=== PATIENT | male | born 1950 | race Caucasian/White ===

== ENCOUNTER 2021-06-30 16:40 | Observation (INO) ==
[2021-06-30] MEDS ORDERED: Ondansetron ODT 4 MG TAB.RAPDIS SL PRN (18:26)
[2021-06-30] MEDS ORDERED: Melatonin 3 MG TABLET PO PRN (18:26)
[2021-06-30] MEDS ORDERED: Naloxone 0.4 MG/ML INJ IVP PRN (18:26)
[2021-06-30] MEDS ORDERED: SODIUM ZIRCONIUM CYCLOSILICATE 5 GM POWD.PACK PO ONE (18:33)
[2021-06-30] MEDS: 0.9 % Sodium Chloride 1,000 ML IVC SCH (18:39)
[2021-06-30 19:45] LABS: Bilirubin,Urine Negative (Negative); Blood,Urine Negative (Negative); Clarity,Urine Clear (Clear); Color,Urine Colorless (Yellow); Glucose,Urine (UA) Normal (Normal); Ketones,Urine Negative (Negative); Leukocyte Esterase,Urine Negative (Negative); Nitrite,Urine Negative (Negative); Protein,Urine Trace mg/dL (Neg-Trace); Urobilinogen,Urine Normal (Normal)
[2021-06-30 19:46] LABS: Basophils # 0.1 K/mcL (0.0-0.2); Basophils % 1.5 %; Eosinophils # 0.2 K/mcL (0.0-0.6); Eosinophils % 2.8 %; Hematocrit 37.1 % (37.5-50.1); Hemoglobin 12.4 g/dL (12.9-16.9); Immature Granulocytes % 0.3 % (0-4); Lymphocytes # 1.2 K/mcL (0.6-4.6); Lymphocytes % 20.1 %; Mean Corpuscular HGB Conc 33.4 g/dL (31.6-35.5); Mean Corpuscular Hemoglobin 30.3 pg (28.0-33.3); Mean Corpuscular Volume 90.7 fL (83.0-100.0); Mean Platelet Volume 10.5 fL (9.4-12.4); Monocytes # 0.6 K/mcL (0.0-1.3); Monocytes % 9.2 %; Neutrophils # 4.1 K/mcL (1.6-8.9); Platelet Count 155 K/mcL (140-400); Red Blood Count 4.09 M/mcL (4.19-5.50); Red Cell Distribution Width 11.8 % (11.5-14.5); Segmented Neutrophils % 66.1 %; White Blood Count 6.2 K/mcL (4.3-11.1)
[2021-06-30 19:49] LABS: Protein/Creatinine Ratio,Urine 0.28 mg/mg (0.00-0.20); Sodium, Urine 53.2 mEq/L
[2021-06-30 19:58] LABS: Magnesium 1.5 mg/dL (1.6-2.6)
[2021-06-30 19:59] LABS: Calcium 8.7 mg/dL (8.6-10.3); Potassium 4.8 mEq/L (3.5-5.1); Uric Acid 6.7 mg/dL (2.3-7.6)
[2021-06-30] MEDS ORDERED: *HR* LORazepam 2 MG/ML VIAL IVP PRN ×3 (20:35→21:05)
[2021-06-30] MEDS: traZODone 50 MG TABLET PO SCH (21:18)
[2021-06-30] MEDS: Thiamine (B-1) 200 MG in 0.9 % Sodium Chloride 50 ML IVPB SCH (21:19)
[2021-07-01] MEDS: 0.9 % Sodium Chloride 1,000 ML IVC SCH (03:06)
[2021-07-01 06:15] LABS: Hematocrit 32.4 % (37.5-50.1); Mean Corpuscular Hemoglobin 30.2 pg (28.0-33.3); Mean Platelet Volume 10.6 fL (9.4-12.4); Platelet Count 145 K/mcL (140-400); Red Blood Count 3.64 M/mcL (4.19-5.50); Red Cell Distribution Width 11.9 % (11.5-14.5); White Blood Count 5.4 K/mcL (4.3-11.1)
[2021-07-01 06:45] LABS: Calcium 8.1 mg/dL (8.6-10.3); Potassium 4.6 mEq/L (3.5-5.1); Thyroid Stimulating Hormone 4.635 mcIU/mL (0.340-5.600)
[2021-07-01 08:47] LABS: Magnesium 1.4 mg/dL (1.6-2.6)
[2021-07-01] MEDS ORDERED: FLUoxetine HCl Oral Soln 20 MG/5 ML UDC PO SCH (09:00)
[2021-07-01] MEDS: Finasteride 5 MG TABLET PO SCH (09:27)
[2021-07-01] MEDS: Folic Acid 1 MG TABLET PO SCH (09:27)
[2021-07-01] MEDS: Artificial Tears SOLN 15 ML BOTTLE BOTH EYES SCH ×3 (09:27→20:04)
[2021-07-01] MEDS: Sodium Bicarbonate 75 MEQ in 0.45 % Sodium Chloride 1,000 ML IVC SCH ×2 (09:27→20:06)
[2021-07-01] MEDS: Thiamine (B-1) 200 MG in 0.9 % Sodium Chloride 50 ML IVPB SCH (09:28)
[2021-07-01] MEDS ORDERED: amLODIPine 5 MG TABLET PO SCH (11:30)
[2021-07-01] MEDS: FLUoxetine 20 MG CAPSULE PO SCH (13:02)
[2021-07-01] MEDS: *HR* Heparin 5,000 UNIT/ML VIAL SQ SCH (18:12)
[2021-07-01] MEDS: traZODone 50 MG TABLET PO SCH (20:04)
[2021-07-01] MEDS ORDERED: TRAZODONE HCL 150 MG PO SCH (21:00)
[2021-07-02] MEDS: *HR* Heparin 5,000 UNIT/ML VIAL SQ SCH (05:13)
[2021-07-02] MEDS: Sodium Bicarbonate 75 MEQ in 0.45 % Sodium Chloride 1,000 ML IVC SCH (05:13)
[2021-07-02 05:51] LABS: Basophils # 0.1 K/mcL (0.0-0.2); Basophils % 1.7 %; Eosinophils # 0.3 K/mcL (0.0-0.6); Eosinophils % 5.5 %; Hematocrit 29.6 % (37.5-50.1); Hemoglobin 10.3 g/dL (12.9-16.9); Immature Granulocytes % 0.2 % (0-4); Lymphocytes # 1.5 K/mcL (0.6-4.6); Mean Corpuscular HGB Conc 34.8 g/dL (31.6-35.5); Mean Corpuscular Hemoglobin 30.7 pg (28.0-33.3); Mean Corpuscular Volume 88.4 fL (83.0-100.0); Mean Platelet Volume 10.5 fL (9.4-12.4); Monocytes # 0.8 K/mcL (0.0-1.3); Monocytes % 13.7 %; Neutrophils # 3.2 K/mcL (1.6-8.9); Platelet Count 133 K/mcL (140-400); Red Blood Count 3.35 M/mcL (4.19-5.50); Red Cell Distribution Width 11.8 % (11.5-14.5); Segmented Neutrophils % 53.9 %
[2021-07-02 06:09] LABS: Calcium 7.9 mg/dL (8.6-10.3); Magnesium 1.8 mg/dL (1.6-2.6); Phosphorous 3.4 mg/dL (2.7-4.5); Potassium 3.9 mEq/L (3.5-5.1)
[2021-07-02] MEDS ORDERED: amLODIPine 5 MG TABLET PO SCH (08:30)
[2021-07-02] MEDS ORDERED: 0.9 % Sodium Chloride 1,000 ML IVC SCH (08:30)
[2021-07-02] MEDS: Folic Acid 1 MG TABLET PO SCH (09:02)
[2021-07-02] MEDS: Artificial Tears SOLN 15 ML BOTTLE BOTH EYES SCH (09:02)
[2021-07-02] MEDS: Finasteride 5 MG TABLET PO SCH (09:02)
[2021-07-02] MEDS: FLUoxetine 20 MG CAPSULE PO SCH (09:02)
[2021-07-02] MEDS: Thiamine (B-1) 200 MG in 0.9 % Sodium Chloride 50 ML IVPB SCH (09:03)
[2021-07-02 11:18] VITALS: BP 150/80; PULSE 68; TEMP 97.7; O2SAT 97
== END 2021-07-02 13:44 | disposition home or self-care (01) ==
LOC: 3BNU → SUATTDRO 17:57
PROVIDERS: ADMIT Student in an Organized Health Care Education/Training Program; ATTEND Internal Medicine